=== PATIENT | female | born 1970 | race Hispanic/Latino ===

== ENCOUNTER 2016-09-17 09:21 | Emergency (ER) | payer BC ==
[2016-09-17] MEDS ORDERED: Sodium Chloride 0.9% 2.5 ML Syringe FLUSH PRN (09:33)
[2016-09-17] MEDS ORDERED: Sodium Chloride 0.9% 10 ML Syringe FLUSH PRN (09:33)
[2016-09-17] MEDS ORDERED: Aspirin 81 MG Tab.Chew PO ONE (09:33)
[2016-09-17] MEDS ORDERED: Aspirin 81 MG Tab.Chew ONE (09:34)
[2016-09-17] MEDS ORDERED: Nitroglycerin 0.4 MG Tab.SL ONE (09:34)
[2016-09-17] MEDS: Nitroglycerin 0.4 MG Tab.SL SL SCH ×3 (09:37→10:00)
--- NOTE | 2016-09-17 09:37 | EDM.PDOC ---
ED HISTORY OF PRESENT ILLNESS - General Chief Complaint: Cardiovascular Problem Stated Complaint: CHEST PAINS Time Seen by Provider: 09/17/16 09:21 - History of Present Illness INITIAL COMMENTS - FREE TEXT/NARRATIVE: HISTORY AND PHYSICAL: History of present illness: The patient is a 46-year-old female with a history of high cholesterol hypertension and nse-nadaice-cepxuanal diabetes who follows in our clinic presents with complaints of midsternal chest pressure that started approximately 7 AM, 2-1/2 hours ago. The patient states that she has had on and off left upper extremity discomfort and neck stiffness for one week but she was working through that and she thought it was more muscular. Patient had a normal day yesterday and slept fine and woke up at her usual time and as the morning went on she started feeling the discomfort ; she was not nauseated she was not diaphoretic. She has no leg pain or swelling and no recent long trips. She says she feels a little short of breath due to the pressure but does not feel that the pain worsens with deep breath. She's had no recent trauma to her chest and has no history of any cardiac testing. She is a smoker of tobacco but denies drug use and has no family cardiac history that she admits to. Patient denies any abdominal pain Review of systems: As per history of present illness and below otherwise all systems reviewed and negative. Past medical history: As per history of present illness and as reviewed below otherwise noncontributory. Surgical history: As per history of present illness and as reviewed below otherwise noncontributory. Social history: No reported history of drug or alcohol abuse. Family history: As per history of present illness and as reviewed below otherwise noncontributory. Physical exam: General: Well-developed well-nourished female who is overweight and nontoxic appearing speaking in full sentences. Her vital signs have been noted by me and her blood pressure is notably elevated. She seems somewhat overwhelmed by the process here in the ED with chest pain patient's. HEENT: Atraumatic, normocephalic, negative for conjunctival pallor or scleral icterus, mucous membranes moist, throat clear, neck supple, nontender, trachea midline. Lungs: Clear to auscultation, breath sounds equal bilaterally, chest nontender. Heart: S1S2, regular, negative for clicks, rubs, or JVD. Abdomen: Soft, nondistended, nontender. Negative for masses or hepatosplenomegaly. NABS Pelvis: Stable nontender. Genitourinary: Deferred. Rectal: Deferred. Extremities: Atraumatic, negative for cords or calf pain. Neurovascular unremarkable. No pedal edema or leg asymmetry Neuro: Awake, alert, oriented. Cranial nerves II through XII unremarkable. Cerebellum unremarkable. Motor and sensory unremarkable throughout. Exam nonfocal. Diagnostics: EKG chest x-ray CBC CMP INR and d-dimer troponin Therapeutics: IV O2 monitor aspirin nitroglycerin sublingual nitro paste After 2 sublingual nitros the patient's chest pain/pressure is now 0/10. We'll apply nitro paste and continue to monitor her testing results. We'll plan for observation admission 1030: I. discussed all testing results with the patient and told her that the treatment of choice would be observation admission and she adamantly is declining admission. I've explained to her the risks of her decision and my concerns and she states understanding and accepts them. She states she will followup with her primary in the clinic and return here for any issues. Impression: Chest pain rule out ACS refusing admission, hypertension poorly controlled Definitive disposition and diagnosis as appropriate pending reevaluation and review of above. - Related Data Allergies/ADRs: Allergies Allergy/AdvReac Type Severity Reaction Status Date / Time No Known Allergies Allergy Verified 09/17/16 10:07 Home Meds: Home Meds Lisinopril/Hydrochlorothiazide [Lisinopril-Hctz 20-12.5 mg Tab] 09/17/16 [ History] atorvaSTATin [Lipitor] 10 mg PO ONETIME 09/17/16 [History] metFORMIN [Glucophage XR] 09/17/16 [History] ED ROS GENERAL - Review of Systems Review Of Systems: ROS reveals no pertinent complaints other than HPI. ED EXAM, GENERAL - Physical Exam Exam: See Below (See dictation) Course - Vital Signs Last Recorded V/S: Last Vital Signs Temp 36.3 C 09/17/16 09:26 Pulse 87 09/17/16 09:55 Resp 18 09/17/16 09:55 BP 156/94 H 09/17/16 10:00 Pulse Ox 100 09/17/16 10:01 - Orders/Labs/Meds Orders: Active Orders 24 hr Category Date Time Status Cardiac Monitoring [RC] . DIRECTED Care 09/17/16 09:31 Active EKG 12 Lead [EKG Documentation Completion] [] STAT Care 09/17/16 10:06 Active EKG Documentation Completion [RC] STAT Care 09/17/16 09:31 Active Oxygen Therapy, ED [RC] ASDIRECTED Care 09/17/16 09:31 Active Pulse Oximetry [RC] ASDIRECTED Care 09/17/16 09:31 Active Nitroglycerin [Nitrostat] Med 09/17/16 09:45 Active 0.4 mg SL Q5M Sodium Chloride 0.9% [Saline Flush] Med 09/17/16 09:33 Active 10 ml FLUSH ASDIRECTED PRN Sodium Chloride 0.9% [Saline Flush] Med 09/17/16 09:33 Active 2.5 ml FLUSH ASDIRECTED PRN Saline Lock Insert [OM.PC] Stat Oth 09/17/16 09:31 Ordered Medication Orders Nitroglycerin (Nitrostat) 0.4 mg SL Q5M [facility] Last Admin: 09/17/16 10:00 Dose: Not Given Admin: 09/17/16 09:48 Dose: 0.4 mg Admin: 09/17/16 09:37 Dose: 0.4 mg Sodium Chloride (Saline Flush) 10 ml FLUSH ASDIRECTED PRN PRN Reason: Keep Vein Open Last Admin: 09/17/16 09:38 Dose: 10 ml Sodium Chloride (Saline Flush) 2.5 ml FLUSH ASDIRECTED PRN PRN Reason: Keep Vein Open Last Admin: 09/17/16 09:38 Dose: 2.5 ml Labs: Laboratory Tests 09/17/16 09/17/16 09/17/16 Range/Units 09:32 09:32 09:32 WBC 8.50 (4.0-11.0) K/uL RBC 4.37 (4.30-5.90) M/uL Hgb 13.4 (12.0-16.0) g/dL Hct 40.3 (36.0-46.0) % MCV 92.2 (80.0-98.0) fL MCH 30.7 (27.0-32.0) pg MCHC 33.3 (31.0-37.0) g/dL RDW Std Deviation 42.5 (28.0-62.0) fl RDW Coeff of Kristy 13 (11.0-15.0) % Plt Count 291 (150-400) K/uL MPV 9.90 (7.40-12.00) fL Neut % (Auto) 49.3 (48.0-80.0) % Lymph % (Auto) 44.2 H (16.0-40.0) % [place] % (Auto) 4.7 (0.0-15.0) % Eos % (Auto) 1.3 (0.0-7.0) % Baso % (Auto) 0.5 (0.0-1.5) % Neut # (Auto) 4.2 (1.4-5.7) K/uL Lymph # (Auto) 3.8 H (0.6-2.4) K/uL [place] # (Auto) 0.4 (0.0-0.8) K/uL Eos # (Auto) 0.1 (0.0-0.7) K/uL Baso # (Auto) 0.0 (0.0-0.1) K/uL Nucleated RBC % 0.0 /100WBC Nucleated RBCs # 0 K/uL INR (0.86-1.11) D-Dimer, Quantitative (0.0-0.52) mg/LFEU Sodium 138 (136-146) mmol/L Potassium 4.1 (3.5-5.1) mmol/L Chloride 103 (98-110) mmol/L Carbon Dioxide 25 (21-31) mmol/L BUN 17 (6.0-23.0) mg/dL Creatinine 0.8 (0.6-1.5) mg/dL Est Cr Clr Drug Dosing 65.60 mL/min Estimated GFR (MDRD) > 60.0 ml/min Glucose 120 H (60-110) mg/dL Calcium 9.6 (8.8-10.8) mg/dL Total Bilirubin 0.5 (0.1-1.5) mg/dL AST 24 (5-40) IU/L ALT 25 (8-54) IU/L Alkaline Phosphatase 68 (40-150) Troponin I < 0.10 (0.0-0.29) NG/ML Total Protein 7.7 (6.0-8.0) g/dL Albumin 4.2 (3.5-5.0) g/dL Globulin 3.5 (2.0-3.5) g/dL Albumin/Globulin Ratio 1.2 L (1.3-2.8) 09/17/16 Range/Units 09:52 WBC (4.0-11.0) K/uL RBC (4.30-5.90) M/uL Hgb (12.0-16.0) g/dL Hct (36.0-46.0) % MCV (80.0-98.0) fL MCH (27.0-32.0) pg MCHC (31.0-37.0) g/dL RDW Std Deviation (28.0-62.0) fl RDW Coeff of Kristy (11.0-15.0) % Plt Count (150-400) K/uL MPV (7.40-12.00) fL Neut % (Auto) (48.0-80.0) % Lymph % (Auto) (16.0-40.0) % [place] % (Auto) (0.0-15.0) % Eos % (Auto) (0.0-7.0) % Baso % (Auto) (0.0-1.5) % Neut # (Auto) (1.4-5.7) K/uL Lymph # (Auto) (0.6-2.4) K/uL [place] # (Auto) (0.0-0.8) K/uL Eos # (Auto) (0.0-0.7) K/uL Baso # (Auto) (0.0-0.1) K/uL Nucleated RBC % /100WBC Nucleated RBCs # K/uL INR 0.88 (0.86-1.11) D-Dimer, Quantitative 0.44 (0.0-0.52) mg/LFEU Sodium (136-146) mmol/L Potassium (3.5-5.1) mmol/L Chloride (98-110) mmol/L Carbon Dioxide (21-31) mmol/L BUN (6.0-23.0) mg/dL Creatinine (0.6-1.5) mg/dL Est Cr Clr Drug Dosing mL/min Estimated GFR (MDRD) ml/min Glucose (60-110) mg/dL Calcium (8.8-10.8) mg/dL Total Bilirubin (0.1-1.5) mg/dL AST (5-40) IU/L ALT (8-54) IU/L Alkaline Phosphatase (40-150) Troponin I (0.0-0.29) NG/ML Total Protein (6.0-8.0) g/dL Albumin (3.5-5.0) g/dL Globulin (2.0-3.5) g/dL Albumin/Globulin Ratio (1.3-2.8) Meds: Medications Generic Name Dose Route Start Last Admin Trade Name Freq PRN Reason Stop Dose Admin Nitroglycerin 0.4 mg 09/17/16 09:45 09/17/16 10:00 Nitrostat SL Not Given Q5M FARAZ Sodium Chloride 10 ml 09/17/16 09:33 09/17/16 09:38 Saline Flush FLUSH 10 ml ASDIRECTED PRN Administration Keep Vein Open Sodium Chloride 2.5 ml 09/17/16 09:33 09/17/16 09:38 Saline Flush FLUSH 2.5 ml ASDIRECTED PRN Administration Keep Vein Open Discontinued Medications Generic Name Dose Route Start Last Admin Trade Name Freq PRN Reason Stop Dose Admin Aspirin 324 mg 09/17/16 09:33 09/17/16 09:37 Aspirin PO 09/17/16 09:34 324 mg ONETIME ONE Administration Aspirin Confirm 09/17/16 09:34 09/17/16 09:57 Aspirin Administered 09/17/16 09:35 Not Given Dose 324 mg .ROUTE .STK-MED ONE Nitroglycerin Confirm 09/17/16 09:34 09/17/16 09:57 Nitrostat Administered 09/17/16 09:35 Not Given Dose 0.4 mg .ROUTE .STK-MED ONE Nitroglycerin 0.5 gm 09/17/16 10:15 09/17/16 10:20 Nitro-Bid 2% TOP 09/17/16 10:16 0.5 gm ONETIME ONE Administration Departure - Departure Time of Disposition: 10:32 Disposition: Home, Self-Care 01 Condition: good Clinical Impression: Poorly-controlled hypertension, Refusal of treatment Chest pain Qualifiers: Chest pain type: unspecified Qualified Code(s): R07.9 - Chest pain, unspecified Forms: ED Department Discharge Additional Instructions: The following information is given to patients seen in the emergency department who are being discharged to home. This information is to outline your options for follow-up care. We provide all patients seen in our emergency department with a follow-up referral. The need for follow-up, as well as the timing and circumstances, are variable depending upon the specifics of your emergency department visit. If you don't have a primary care physician on staff, we will provide you with a referral. We always advise you to contact your personal physician following an emergency department visit to inform them of the circumstance of the visit and for follow-up with them and/or the need for any referrals to a consulting specialist. The emergency department will also refer you to a specialist when appropriate. This referral assures that you have the opportunity for followup care with a specialist. All of these measure are taken in an effort to provide you with optimal care, which includes your followup. Under all circumstances we always encourage you to contact your private physician who remains a resource for coordinating your care. When calling for followup care, please make the office aware that this follow-up is from your recent emergency room visit. If for any reason you are refused follow-up, please contact the [facility] emergency department at and ask to speak to the emergency department charge nurse. [facility] Primary care- Internal Medicine and Family [address] [address] Please call and followup with your primary care physician as we discussed in the next one to 2 days and return to ER as needed and as discussed. Please continue all your home medications and take one 325 mg Ecotrin aspirin every day until you're seen by your doctor. - My Orders Last 24 Hours: My Active Orders 09/17/16 09:31 Cardiac Monitoring [RC] . DIRECTED EKG Documentation Completion [RC] STAT Oxygen Therapy, ED [RC] ASDIRECTED Pulse Oximetry [RC] ASDIRECTED Saline Lock Insert [OM.PC] Stat 09/17/16 09:33 Sodium Chloride 0.9% [Saline Flush] 10 ml FLUSH ASDIRECTED PRN Sodium Chloride 0.9% [Saline Flush] 2.5 ml FLUSH ASDIRECTED PRN 09/17/16 09:45 Nitroglycerin [Nitrostat] 0.4 mg SL Q5M 09/17/16 10:06 EKG 12 Lead [EKG Documentation Completion] [RC] STAT - Assessment/Plan Last 24 Hours: My Active Orders 09/17/16 09:31 Cardiac Monitoring [RC] . DIRECTED EKG Documentation Completion [RC] STAT Oxygen Therapy, ED [RC] ASDIRECTED Pulse Oximetry [RC] ASDIRECTED Saline Lock Insert [OM.PC] Stat 09/17/16 09:33 Sodium Chloride 0.9% [Saline Flush] 10 ml FLUSH ASDIRECTED PRN Sodium Chloride 0.9% [Saline Flush] 2.5 ml FLUSH ASDIRECTED PRN 09/17/16 09:45 Nitroglycerin [Nitrostat] 0.4 mg SL Q5M 09/17/16 10:06 EKG 12 Lead [EKG Documentation Completion] [RC] STAT
--- NOTE | 2016-09-17 10:12 | CR ---
EXAMINATION: Portable chest radiograph. HISTORY: Shortness of breath. FINDINGS: The trachea is midline. The cardiomediastinal silhouette is within normal limits. No pulmonary infil trates, effusions or pneumothorax. Osseous structures appear unremarkable. IMPRESSION: No acute cardiopulmonary process.
[2016-09-17] MEDS ORDERED: Nitroglycerin 2% Oint 1 GM UD Packet TOP ONE (10:15)
[2016-09-17 10:23] LABS: CHLORIDE,CL 103 mmol/L (98-110); SODIUM,NA 138 mmol/L (136-146)
[2016-09-17 11:20] VITALS: BP 162/92
== END 2016-09-17 10:50 | disposition home or self-care (01) ==
LOC: MW.ED 09:21
DX: R07.89 Other chest pain (principal); I10 Essential (primary) hypertension; E78.00 Pure hypercholesterolemia, unspecified; E11.9 Type 2 diabetes mellitus without complications; Z79.84 Long term (current) use of oral hypoglycemic drugs
CPT/HCPCS: 71010; 80053; 84484; 85025; 85379; 85610; 93005; 99285; A9270; 99284

== ENCOUNTER 2020-01-05 06:43 | Day surgery (SDC) | payer OTHER ==
[~2020-01-05 06:43] MED LIST: Lactated Ringers 1,000 ML IV SCH; Sodium Chloride 0.9% 10 ML SDV IV PRN; Sodium Chloride 0.9% 10 ML Syringe FLUSH PRN; Sodium Chloride 0.9% 2.5 ML Syringe FLUSH PRN; ceFAZolin 2 GM in Premix Bag 1 BAG IV ONE
[2020-01-05] MEDS ORDERED: Propofol 200 MG/20 ML SDV ONE ×4 (06:59→08:32)
[2020-01-05] MEDS ORDERED: Lidocaine 2% 5 ML SDV ONE (06:59)
[2020-01-05] MEDS ORDERED: Midazolam 1 MG/ML 2 ML SDV ONE (06:59)
[2020-01-05] MEDS ORDERED: Ondansetron 4 MG/2 ML SDV ONE (06:59)
[2020-01-05] MEDS ORDERED: fentaNYL 250 MCG/5 ML SDV ONE (07:00)
[2020-01-05] MEDS ORDERED: Midazolam 1 MG/ML 2 ML SDV IVPUSH ONE (07:16)
--- NOTE | 2020-01-05 07:16 | PCM.PREANE ---
Preanesthetic Assessment - Anesthesia/Transfusion/Family Hx Anesthesia History: Prior Anesthesia Reaction (slow waking) Family History of Anesthesia Reaction: No Transfusion History: No Prior Transfusion(s) - Review of Systems General: No Symptoms Pulmonary: No Symptoms Cardiovascular: No Symptoms Gastrointestinal: No Symptoms Neurological: No Symptoms Other: Reports: Anxiety - Physical Assessment NPO Status Date: 01/04/20 Vital Signs: Last Vital Signs Temp 98.2 F 01/05/20 07:04 Pulse 98 01/05/20 07:04 Resp 14 01/05/20 07:04 BP 131/87 01/05/20 07:04 Pulse Ox 99 01/05/20 07:04 Height: 5 ft Weight: 84.822 kg ASA Class: 2 Mental Status: Alert & Oriented x3 Airway Class: Mallampati = 2 Dentition: Reports: Normal Dentition ROM/Head Extension: Full Lungs: Clear to Auscultation, Normal Respiratory Effort Cardiovascular: Regular Rate, Regular Rhythm - Allergies Allergies/Adverse Reactions: Allergies Allergy/AdvReac Type Severity Reaction Status Date / Time No Known Allergies Allergy Verified 01/05/20 07:09 - Blood Blood Available: No - Anesthesia Plan Pre-Op Medication Ordered: Anxiolytic - Acknowledgements Anesthesia Type Planned: MAC Pt an Appropriate Candidate for the Planned Anesthesia: Yes Alternatives and Risks of Anesthesia Discussed w Pt/Guardian: Yes Pt/Guardian Understands and Agrees with Anesthesia Plan: Yes Additional Comments: PMH: anxiety disorder, DM2, smoker, periph neuropathy PLAN: MAC PreAnesthesia Questionnaire HEENT History: Reports: Other (See Below) Other HEENT History: wears glasses Cardiovascular History: Reports: High Cholesterol, Hypertension Respiratory History: Reports: None Gastrointestinal History: Reports: Other (See Below) Other Gastrointestinal History: some heartburn Genitourinary History: Reports: None NEURO OPHTHALMOLOGIST History: Reports: None Musculoskeletal History: Reports: None Neurological History: Reports: Other (See Below) Other Neuro History: hx of motion sickness Psychiatric History: Reports: Anxiety Endocrine/Metabolic History: Reports: Diabetes, Type II, Obesity/BMI 30+ Hematologic History: Reports: None Immunologic History: Reports: None Oncologic (Cancer) History: Reports: None Dermatologic History: Reports: None - Infectious Disease History Infectious Disease History: Reports: Chicken Pox - Past Surgical History Head Surgeries/Procedures: Reports: None HEENT Surgical History: Reports: None Cardiovascular Surgical History: Reports: None GI Surgical History: Reports: None Female Surgical History: Reports: Tubal Ligation Endocrine Surgical History: Reports: None Neurological Surgical History: Reports: None Musculoskeletal Surgical History: Reports: Other (See Below) Other Musculoskeletal Surgeries/Procedures:: wound closure on leg Dermatological Surgical History: Reports: None - SUBSTANCE USE Smoking Status *Q: Current Every Day Smoker Tobacco Use Within Last Twelve Months: Cigarettes Recreational Drug Use History: No - HOME MEDS Home Medications: Home Meds atorvaSTATin [Lipitor] 20 mg PO BEDTIME 09/17/16 [History] Dapagliflozin Propanediol [Farxiga] 10 mg PO DAILY 12/30/19 [History] Escitalopram Oxalate 10 mg PO DAILY 12/30/19 [History] Lisinopril/Hydrochlorothiazide [Lisinopril-Hctz 20-25 mg Tab] 1 tab PO DAILY 12/30/19 [History] - CURRENT (IN HOUSE) MEDS Current Meds: Current Medications Lactated Ringer's (Ringers, Lactated) 1,000 mls @ 125 mls/hr IV ASDIRECTED FARAZ Sodium Chloride (Saline Flush) 2.5 ml FLUSH ASDIRECTED PRN PRN Reason: Keep Vein Open Sodium Chloride (Normal Saline) 10 ml IV ASDIRECTED PRN PRN Reason: IV Use Sodium Chloride (Saline Flush) 10 ml FLUSH ASDIRECTED PRN PRN Reason: Keep Vein Open Discontinued Medications Fentanyl (Sublimaze) Confirm Administered Dose 250 mcg .ROUTE .STK-MED ONE Stop: 01/05/20 07:01 Cefazolin Sodium/Dextrose 2 gm (/ Premix) 50 mls @ 100 mls/hr IV ONETIME ONE Stop: 01/02/20 11:42 Lidocaine (Xylocaine-Mpf 2%) Confirm Administered Dose 5 ml .ROUTE .STK-MED ONE Stop: 01/05/20 07:00 Midazolam HCl (Versed 1 Mg/Ml) Confirm Administered Dose 2 mg .ROUTE .STK-MED ONE Stop: 01/05/20 07:00 Ondansetron HCl (Zofran) Confirm Administered Dose 4 mg .ROUTE .STK-MED ONE Stop: 01/05/20 07:00 Propofol (Diprivan 20 Ml) Confirm Administered Dose 200 mg .ROUTE .STK-MED ONE Stop: 01/05/20 07:00
[2020-01-05] MEDS ORDERED: Lidocaine 1% 20 ML MDV ONE (07:17)
[2020-01-05] MEDS ORDERED: Bupivacaine 0.5% 10 ML SDV ONE (07:17)
[2020-01-05] MEDS ORDERED: Octyl 2-Cyanoacrylate 1 Tube ONE ×2 (07:17→08:47)
[2020-01-05] MEDS ORDERED: ePHEDrine 50 MG/ML SDV ONE (08:06)
[2020-01-05] MEDS ORDERED: Albuterol 0.083% 2.5 MG/3 ML Neb Soln NEB PRN (08:15)
[2020-01-05] MEDS ORDERED: Atropine 0.1 MG/ML 10 ML Syringe IVPUSH PRN ×2 (08:15)
[2020-01-05] MEDS ORDERED: Naloxone 0.4 MG/ML Syringe IVPUSH PRN (08:15)
[2020-01-05] MEDS ORDERED: 50% Dextrose in Water 50 ML Syringe IVPUSH PRN (08:15)
[2020-01-05] MEDS ORDERED: fentaNYL 100 MCG/2 ML SDV IVPUSH PRN (08:15)
[2020-01-05] MEDS ORDERED: EPINEPHrine 1:10,000 1 MG/10 ML Syringe IVPUSH PRN (08:15)
--- NOTE | 2020-01-05 09:14 | PCM.OPNOTE ---
- General Post-Op/Procedure Note Date of Surgery/Procedure: 01/05/20 Operative Procedure(s): Excision right abdominal, right hip, and left lower leg skin lesion Findings: right abdominal skin lesion: 0.5 x 0.9 cm on skin, 2 x 1.5 x 0.4 skin excised, 2 cm cyst right hip:5mm on skin, 1 x 0.5 x 0.8 cm excised left lower leg skin lesion: 1 cm on skin, 1.2 x 1 x 1 cm excised Ruptured sebaceous cyst on mid abdomen skin Pre Op Diagnosis: Sebaceous cysts Post-Op Diagnosis: same Anesthesia Technique: MAC Primary Surgeon: Suri Grant Fluid Replacement, Intraop: 1,400 EBL in mLs: 3 Condition: Good
--- NOTE | 2020-01-05 10:22 | PCM.POSTAN ---
POST ANESTHESIA ASSESSMENT - MENTAL STATUS Mental Status: Alert, Oriented - VITAL SIGNS Vital Signs: Last Vital Signs Temp 97.2 F 01/05/20 09:40 Pulse 89 01/05/20 09:40 Resp 16 01/05/20 09:40 BP 141/77 H 01/05/20 09:40 Pulse Ox 100 01/05/20 09:40 - RESPIRATORY Respiratory Status: Respiratory Rate WNL, Airway Patent, O2 Saturation Stable - CARDIOVASCULAR CV Status: Pulse Rate WNL, Blood Pressure Stable - GASTROINTESTINAL GI Status: No Symptoms - POST OP HYDRATION Hydration Status: Adequate & Stable
[2020-01-05] MEDS ORDERED: Sodium Chloride 0.9% 500 ML IV SCH (10:30)
[2020-01-05 10:45] LABS: CARBON DIOXIDE,CO2 24.4 mmol/L (21.0-32.0); POTASSIUM,K 4.1 mmol/L (3.5-5.1)
[2020-01-05 11:26] LABS: HEMOGLOBIN A1C 10.3 % (4.5-6.2)
[2020-01-05 12:08] VITALS: BP 126/78; PULSE 88
--- NOTE | 2020-01-05 12:32 | PCM48HPAN ---
Post Anesthesia Note - EVALUATION WITHIN 48HRS OF ANESTHETIC Vital Signs in Normal Range: Yes Patient Participated in Evaluation: Yes Respiratory Function Stable: Yes Airway Patent: Yes Cardiovascular Function Stable: Yes Hydration Status Stable: Yes Pain Control Satisfactory: Yes Nausea and Vomiting Control Satisfactory: Yes Mental Status Recovered: Yes Vital Signs: Last Vital Signs Temp 97.2 F 01/05/20 09:40 Pulse 88 01/05/20 11:35 Resp 14 01/05/20 11:35 BP 126/78 01/05/20 11:35 Pulse Ox 100 01/05/20 11:35
--- NOTE | 2020-01-06 17:35 | OR ---
SURGEON: SURI GRANT MD DATE OF PROCEDURE: 01/05/2020 PREOPERATIVE DIAGNOSES: 1. Left lower skin lesion. 2. Right hip skin lesion. 3. Abdominal skin lesion. POSTOPERATIVE DIAGNOSES: 1. Left lower skin lesion. 2. Right hip skin lesion. 3. Abdominal skin lesion. PROCEDURE PERFORMED: Excision of left lower leg, right hip, and abdominal skin lesions. PRIMARY SURGEON: Suri Grant MD ANESTHESIA: MAC, local. FLUIDS: 1400 mL of crystalloid. ESTIMATED BLOOD LOSS: 3 mL. FINDINGS: Left lower leg skin lesion 0.5 x 0.5 cm on the skin, underlying cyst 2 cm, ellipse of skin removed 2 x 1.5 x 0.4 cm. No margins involved with case. Right hip skin lesion 5 mm on the skin, excision 1 x 0.5 x 0.8 cm. No margins associated with case. Abdominal skin lesion 1 cm, excision 1.2 x 1 x 1 cm in size. No margins associated with case. COMPLICATIONS: None. INDICATIONS: The patient is a 49-year-old female with poorly-controlled type 2 diabetes who has multiple skin lesions on her body. She has three skin lesions that appear to be sebaceous cysts. The patient has had issues with chronic infections. A decision was made to excise these while they are not infected. I explained the procedure; expected perioperative course; and the risks including bleeding, infection, or wound dehiscence. She verbalized understanding and wishes to proceed. PROCEDURE IN DETAIL: The patient was brought into the OR and placed on the OR table in supine position. A time-out was completed verifying the patient's name, age, date of , allergies, and procedure to be performed. Monitored anesthesia care was induced. The patient was then placed in a right lateral decubitus position. The left lower leg was prepped and draped in usual standard fashion. I measured the lesion on her left lower leg. It measured 0.5 cm in diameter. An elliptical skin incision was made using a 15 blade after anesthetizing the area with 1% lidocaine plain. Cautery was then used to dissect down to level of subcutaneous fat. At the subcutaneous fat layer, the patient was noted to have what appeared to be a large cyst associated with the skin lesion. This appeared to be a sebaceous cyst. I used cautery to excise the overlying skin lesion and the underlying skin cyst. It was placed on the back table. The overlying skin measured 2 cm x 1.5 cm x 0.4 cm. The underlying skin cyst was 2 cm in size. It was sent to pathology, labeled as left lower skin lesion. The wound was then inspected for hemostasis. Hemostasis was achieved with electrocautery. Given that the wound was in a high motion area, the decision was made to close it with interrupted 3-0 Ethilon sutures. I closed the wound in a horizontal mattress technique. The wound was then covered with a sterile dressing. We then placed the patient into a semi-left lateral position. The right hip was prepped and draped in usual standard fashion. I anesthetized the area with 1% lidocaine plain. I measured the skin lesion, which appeared to measure approximately 5 mm in diameter. An elliptical skin incision was made. Electrocautery was used to dissect down to level of subcutaneous fat. I then undermined the lesion. It was placed on the back table. The ellipse of tissue measured 1 cm x 0.5 cm x 0.8 cm in size. It was sent to pathology, labeled as right hip skin lesion. Hemostasis was achieved with electrocautery. The wound was then closed with interrupted 3-0 Vicryl sutures in the subcutaneous fat layer and interrupted 4-0 Monocryl sutures in the skin. Dermabond and a sterile dressing were applied. We then prepped and draped the right lower quadrant in sterile standard fashion. Again, I anesthetized this area with 1% lidocaine plain and 0.5% Marcaine plain. The skin lesion measured 1 cm in size. I made an elliptical skin incision using a 15 blade. Cautery was used to dissect down to level of subcutaneous fat. I undermined the lesion and placed it on the back table. The skin lesion and ellipse of skin around it that was removed measured 1.2 x 1 x 1 cm in size. It was sent to pathology, labeled as abdominal skin lesion. Hemostasis was achieved with electrocautery. I then closed the wound with interrupted 3-0 Vicryl sutures in the subcutaneous fat layer. The skin was closed with a running 4-0 Monocryl stitch. Dermabond and sterile dressings were applied. The patient was noted along the mid abdomen to have an inflamed previously ruptured cyst. The area was covered in bacitracin and a clean dressing applied. The patient was taken to PACU in stable condition. Throughout the case, the patient was tachypneic. Labs were checked. The patient had an elevated lactate of 2.8 cm. The patient was given a 500 mL bolus of normal saline. She was kept on IV fluids and allowed to eat. Two hours later, her lactate had come down. The remainder of her labs were normal. The patient was placed on Keflex outpatient given the inflamed appearing and previously ruptured cyst. The patient otherwise tolerated the procedure well with no immediate complications. REN BACA /[id number]
== END 2020-01-05 13:38 | disposition home or self-care (01) ==
LOC: MW.SDS 06:43
PROVIDERS: ATTEND Surgery
DX: L72.0 Epidermal cyst (principal); F41.9 Anxiety disorder, unspecified; E78.00 Pure hypercholesterolemia, unspecified; I10 Essential (primary) hypertension; E66.3 Overweight; E11.42 Type 2 diabetes mellitus with diabetic polyneuropathy; F17.210 Nicotine dependence, cigarettes, uncomplicated; Z68.36 Body mass index [BMI] 36.0-36.9, adult; Z79.899 Other long term (current) drug therapy; Z79.84 Long term (current) use of oral hypoglycemic drugs
CPT/HCPCS: 11401; 11402; 12031; 36415; 80053; 82962; 83036; 83605; 85025; A9270; J2001; J2250; J2704; J3010; J3490; J7050; J7120; 00400; 88304; J2405

== ENCOUNTER 2023-04-24 10:13 | Emergency (ER) | payer OTHER ==
[2023-04-24 10:29] LABS: BASOPHILS ABSOLUTE AUTO 0.04 K/uL (0.00-0.20); BASOPHILS PERCENT AUTO 0.6 % (0.0-1.0); EOSINOPHILS ABSOLUTE AUTO 0.14 K/uL (0.00-0.45); EOSINOPHILS PERCENT AUTO 1.9 % (0.0-6.0); HEMATOCRIT 46.9 % (37.0-47.0); HEMOGLOBIN 16.8 g/dL (12.0-16.0); IMMATURE GRAN ABSOLUTE AUTO 0.02 K/uL (0.00-0.05); IMMATURE GRAN PERCENT AUTO 0.3 % (0.0-0.4); LYMPHOCYTES ABSOLUTE AUTO 2.79 K/uL (1.00-4.80); LYMPHOCYTES PERCENT AUTO 38.5 % (24.0-44.0); MEAN CORPUSCULAR HEMOGLOBIN 31.6 pg (28.0-32.0); MEAN CORPUSCULAR HGB CONC 35.8 g/dL (32.0-36.0); MEAN CORPUSCULAR VOLUME 88.3 fL (83.0-99.0); MEAN PLATELET VOLUME 9.7 fL (9.4-12.3); MONOCYTES ABSOLUTE AUTO 0.48 K/uL (0.00-0.80); MONOCYTES PERCENT AUTO 6.6 % (0.0-8.0); NEUTROPHILS ABSOLUTE AUTO 3.78 K/uL (1.80-7.70); NEUTROPHILS PERCENT AUTO 52.1 % (41.0-71.0); PLATELET COUNT,PLT 256 K/uL (150-400); RED BLOOD CELL COUNT 5.31 M/uL (4.10-5.30); WHITE BLOOD CELL COUNT,WBC 7.25 K/uL (3.9-11.3)
[2023-04-24] MEDS ORDERED: Lidocaine 4% 1 each Patch TOP STA (10:43)
[2023-04-24] MEDS ORDERED: Acetaminophen 500 MG Tab PO ONE (10:43)
[2023-04-24] MEDS ORDERED: cloNIDine 0.1 MG Tab PO ONE (10:43)
[2023-04-24 11:05] LABS: A/G RATIO 0.9 (0.9-1.6); BILIRUBIN TOTAL 0.5 mg/dL (0.2-1.0); CALCIUM 9.4 mg/dL (8.5-10.1); CARBON DIOXIDE,CO2 33.4 mmol/L (21.0-32.0); CREATININE 1.1 mg/dL (0.6-1.0); EST CRCL DRUG DOSING (CG) 42.48 mL/min; POTASSIUM,K 2.9 mmol/L (3.5-5.1); PROTEIN TOTAL,TP 8.3 g/dL (6.4-8.2)
[2023-04-24 11:52] LABS: CORONAVIRUS COVID-19 NAA NEGATIVE (NEGATIVE); INFLUENZA A NAA NEGATIVE (NEGATIVE); INFLUENZA B NAA NEGATIVE (NEGATIVE)
[2023-04-24] MEDS ORDERED: Magnesium Oxide 400 MG Tab PO ONE (12:17)
[2023-04-24] MEDS ORDERED: Potassium Chloride 20 MEQ Tab.ER PO ONE (12:17)
[2023-04-24 12:41] VITALS: BP 140/86; PULSE 79
== END 2023-04-24 12:41 | disposition home or self-care (01) ==
LOC: MW.ED 10:13
DX: R07.81 Pleurodynia (principal); I10 Essential (primary) hypertension; Z20.822 Contact with and (suspected) exposure to COVID-19; E11.9 Type 2 diabetes mellitus without complications; E66.9 Obesity, unspecified; Z68.31 Body mass index [BMI] 31.0-31.9, adult
CPT/HCPCS: 0240U; 36415; 71101; 80053; 83735; 84484; 85025; 93005; 99284; A9270

== ENCOUNTER 2024-05-02 07:55 | Day surgery (SDC) | payer BC ==
[2024-05-02] MEDS ORDERED: Propofol 200 MG/20 ML SDV ONE (08:09)
[2024-05-02] MEDS: Lactated Ringers 1,000 ML IV SCH (08:39)
[2024-05-02] MEDS ORDERED: Lidocaine 2% 5 ML SDV ONE (09:08)
[2024-05-02] MEDS ORDERED: Lactated Ringers 1,000 ML IV SCH (09:45)
[2024-05-02 09:55] VITALS: PULSE 67
[2024-05-02 11:28] VITALS: BP 174/94
== END 2024-05-02 10:20 | disposition home or self-care (01) ==
LOC: MW.SDS 07:55
PROVIDERS: ATTEND Surgery
DX: Z12.11 Encounter for screening for malignant neoplasm of colon (principal); C19 Malignant neoplasm of rectosigmoid junction; E11.9 Type 2 diabetes mellitus without complications; I10 Essential (primary) hypertension; E78.5 Hyperlipidemia, unspecified; E66.3 Overweight; F17.210 Nicotine dependence, cigarettes, uncomplicated; Z79.82 Long term (current) use of aspirin; Z79.899 Other long term (current) drug therapy; Z68.35 Body mass index [BMI] 35.0-35.9, adult
CPT/HCPCS: 36415; 45331; 82378; J2704; J7120; J3490

== ENCOUNTER 2024-05-26 10:25 | Emergency (ER) | payer BC ==
[2024-05-26 11:00] LABS: BASOPHILS ABSOLUTE AUTO 0.03 K/uL (0.00-0.20); BASOPHILS PERCENT AUTO 0.3 % (0.0-1.0); EOSINOPHILS PERCENT AUTO 1.1 % (0.0-6.0); HEMATOCRIT 41.1 % (37.0-47.0); HEMOGLOBIN 13.9 g/dL (12.0-16.0); IMMATURE GRAN ABSOLUTE AUTO 0.02 K/uL (0.00-0.05); IMMATURE GRAN PERCENT AUTO 0.2 % (0.0-0.4); LYMPHOCYTES ABSOLUTE AUTO 2.25 K/uL (1.00-4.80); LYMPHOCYTES PERCENT AUTO 24.5 % (24.0-44.0); MEAN CORPUSCULAR HEMOGLOBIN 29.6 pg (28.0-32.0); MEAN CORPUSCULAR HGB CONC 33.8 g/dL (32.0-36.0); MEAN CORPUSCULAR VOLUME 87.6 fL (83.0-99.0); MEAN PLATELET VOLUME 9.3 fL (9.4-12.3); MONOCYTES ABSOLUTE AUTO 0.72 K/uL (0.00-0.80); MONOCYTES PERCENT AUTO 7.8 % (0.0-8.0); NEUTROPHILS ABSOLUTE AUTO 6.07 K/uL (1.80-7.70); NEUTROPHILS PERCENT AUTO 66.1 % (41.0-71.0); PLATELET COUNT,PLT 281 K/uL (150-400); RED BLOOD CELL COUNT 4.69 M/uL (4.10-5.30); WHITE BLOOD CELL COUNT,WBC 9.19 K/uL (3.9-11.3)
[2024-05-26] MEDS: Morphine 4 MG/ML Syringe IVPUSH ONE ×2 (11:17→13:28)
[2024-05-26] MEDS: Sodium Chloride 0.9% 10 ML Syringe FLUSH PRN (11:18)
[2024-05-26] MEDS: Sodium Chloride 0.9% 1,000 ML IV STA (11:18)
[2024-05-26] MEDS: Sodium Chloride 0.9% 2.5 ML Syringe FLUSH PRN (11:18)
[2024-05-26 11:30] LABS: A/G RATIO 0.8 (0.9-1.6); ALBUMIN 3.6 g/dL (3.4-5.0); BILIRUBIN TOTAL 0.5 mg/dL (0.2-1.0); CALCIUM 9.2 mg/dL (8.5-10.1); CARBON DIOXIDE,CO2 26.5 mmol/L (21.0-32.0); CREATININE 0.9 mg/dL (0.6-1.0); EST CRCL DRUG DOSING (CG) 50.73 mL/min; POTASSIUM,K 3.5 mmol/L (3.5-5.1); PROTEIN TOTAL,TP 8.2 g/dL (6.4-8.2)
[2024-05-26 11:33] LABS: LACTIC ACID 0.8 mmol/L (0.4-2.0)
[2024-05-26 11:59] LABS: APPEARANCE,URINE CLEAR; BILIRUBIN,URINE NEGATIVE (NEGATIVE); GLUCOSE,URINE >=1000 mg/dL (NEGATIVE); KETONES,URINE NEGATIVE (NEGATIVE); LEUKOCYTE ESTERASE,URINE NEGATIVE (NEGATIVE); NITRITE,URINE NEGATIVE (NEGATIVE); OCCULT BLOOD,URINE NEGATIVE (NEGATIVE); PROTEIN,URINE NEGATIVE (NEGATIVE); UROBILINOGEN,URINE 0.2 EU/dL (<2.0)
[2024-05-26 12:01] LABS: COLOR,URINE STRAW
[2024-05-26] MEDS: Iopamidol 755 Mg/ML 100 ML Bottle IVPUSH ONE (12:17)
[2024-05-26 14:08] VITALS: PULSE 91
[2024-05-26 14:16] VITALS: BP 148/91
== END 2024-05-26 14:16 | disposition home or self-care (01) ==
LOC: MW.ED 10:25
DX: R10.31 Right lower quadrant pain (principal); C18.9 Malignant neoplasm of colon, unspecified; I10 Essential (primary) hypertension; I25.10 Atherosclerotic heart disease of native coronary artery without angina pectoris; E78.00 Pure hypercholesterolemia, unspecified; E66.9 Obesity, unspecified; E11.9 Type 2 diabetes mellitus without complications; Z75.8 Other problems related to medical facilities and other health care; Z79.82 Long term (current) use of aspirin; Z79.899 Other long term (current) drug therapy; Z68.32 Body mass index [BMI] 32.0-32.9, adult
CPT/HCPCS: 36415; 74177; 80053; 81003; 83605; 83690; 85025; 86850; 86900; 86901; 96361; 96374; 96376; 99284; J2270; J7030; Q9967; J3490

== ENCOUNTER 2024-07-14 08:05 | Day surgery (SDC) | payer BC ==
[~2024-07-14 08:05] MED LIST changes: +Bupivacaine 0.5% 30 ML SDV ONE; -Lactated Ringers 1,000 ML IV SCH; +Lidocaine 1% 20 ML MDV ONE; -Sodium Chloride 0.9% 10 ML SDV IV PRN; +Sodium Chloride 0.9% 20 ML SDV IV PRN; -ceFAZolin 2 GM in Premix Bag 1 BAG IV ONE; +ceFAZolin 2 GM in Sodium Chloride 0.9% 50 ML IV ONE
[2024-07-14] MEDS: Lactated Ringers 1,000 ML IV SCH (08:25)
[2024-07-14] MEDS ORDERED: Propofol 200 MG/20 ML SDV ONE (08:45)
[2024-07-14] MEDS ORDERED: Ondansetron 4 MG/2 ML SDV ONE (08:46)
[2024-07-14] MEDS ORDERED: fentaNYL 100 MCG/2 ML SDV ONE (08:46)
[2024-07-14] MEDS ORDERED: Lidocaine 1% 5 ML VIAL ONE (08:46)
[2024-07-14] MEDS ORDERED: Dexamethasone 4 MG/ML 5 ML MDV ONE (08:46)
[2024-07-14] MEDS ORDERED: ceFAZolin 2 GM Vial ONE (10:04)
[2024-07-14] MEDS ORDERED: HYDROmorphone 1 MG/ML Syringe IVPUSH PRN (11:01)
[2024-07-14] MEDS ORDERED: Albuterol 0.083% 2.5 MG/3 ML Neb Soln NEB PRN (11:01)
[2024-07-14] MEDS ORDERED: Morphine 2 MG/ML SYRINGE IVPUSH PRN (11:01)
[2024-07-14] MEDS ORDERED: Ondansetron 4 MG/2 ML SDV IVPUSH PRN (11:01)
[2024-07-14] MEDS ORDERED: Metoclopramide 10 MG/2 ML SDV IVPUSH PRN (11:01)
[2024-07-14] MEDS ORDERED: Naloxone 0.4 MG/ML SDV IVPUSH PRN (11:01)
[2024-07-14] MEDS ORDERED: Phenylephrine HCl In 0.9% NaCl 1 MG/10 ML Syringe IVPUSH PRN (11:01)
[2024-07-14] MEDS: fentaNYL 50 MCG/ML SDV IVPUSH PRN (11:05)
[2024-07-14 12:43] VITALS: BP 176/92; PULSE 71
== END 2024-07-14 11:55 | disposition home or self-care (01) ==
LOC: MW.SDS 08:05
PROVIDERS: ATTEND Surgery
DX: C18.9 Malignant neoplasm of colon, unspecified (principal); I25.10 Atherosclerotic heart disease of native coronary artery without angina pectoris; E11.9 Type 2 diabetes mellitus without complications; I10 Essential (primary) hypertension; E78.00 Pure hypercholesterolemia, unspecified; F17.210 Nicotine dependence, cigarettes, uncomplicated; Z79.82 Long term (current) use of aspirin; Z79.899 Other long term (current) drug therapy
CPT/HCPCS: 71045; 71045-26; 76000; 76000-26; J0131; J0665; J0690; J1100; J1642; J2405; J2704; J3010; J3490; J7120

== ENCOUNTER 2024-09-04 19:49 | Emergency (ER) | payer BC ==
[2024-09-04] MEDS ORDERED: Sodium Chloride 0.9% 2.5 ML Syringe FLUSH PRN ×2 (20:21→20:40)
[2024-09-04] MEDS ORDERED: Sodium Chloride 0.9% 10 ML Syringe FLUSH PRN ×2 (20:21→20:40)
[2024-09-04] MEDS ORDERED: Sodium Chloride 0.9% 20 ML SDV IV PRN ×2 (20:21→20:40)
[2024-09-04 20:43] LABS: BASOPHILS ABSOLUTE AUTO 0.03 K/uL (0.00-0.20); BASOPHILS PERCENT AUTO 0.9 % (0.0-1.0); EOSINOPHILS ABSOLUTE AUTO 0.12 K/uL (0.00-0.45); EOSINOPHILS PERCENT AUTO 3.5 % (0.0-6.0); HEMATOCRIT 39.7 % (37.0-47.0); HEMOGLOBIN 13.8 g/dL (12.0-16.0); LYMPHOCYTES ABSOLUTE AUTO 2.34 K/uL (1.00-4.80); MEAN CORPUSCULAR HEMOGLOBIN 29.8 pg (28.0-32.0); MEAN CORPUSCULAR HGB CONC 34.8 g/dL (32.0-36.0); MEAN CORPUSCULAR VOLUME 85.7 fL (83.0-99.0); MEAN PLATELET VOLUME 10.3 fL (9.4-12.3); MONOCYTES ABSOLUTE AUTO 0.09 K/uL (0.00-0.80); MONOCYTES PERCENT AUTO 2.6 % (0.0-8.0); NEUTROPHILS ABSOLUTE AUTO 0.86 K/uL (1.80-7.70); PLATELET COUNT,PLT 180 K/uL (150-400); RED BLOOD CELL COUNT 4.63 M/uL (4.10-5.30); WHITE BLOOD CELL COUNT,WBC 3.44 K/uL (3.9-11.3)
[2024-09-04] MEDS: Sodium Chloride 0.9% 1,000 ML IV ONE (20:52)
[2024-09-04 21:08] LABS: BILIRUBIN,URINE NEGATIVE (NEGATIVE); COLOR,URINE YELLOW; GLUCOSE,URINE >=1000 mg/dL (NEGATIVE); KETONES,URINE TRACE mg/dL (NEGATIVE); LEUKOCYTE ESTERASE,URINE NEGATIVE (NEGATIVE); NITRITE,URINE NEGATIVE (NEGATIVE); OCCULT BLOOD,URINE NEGATIVE (NEGATIVE); PROTEIN,URINE TRACE mg/dL (NEGATIVE)
[2024-09-04 21:09] LABS: A/G RATIO 1.1 (0.9-1.6); ALBUMIN 3.9 g/dL (3.4-5.0); BILIRUBIN TOTAL 1.1 mg/dL (0.2-1.0); CALCIUM 9.3 mg/dL (8.5-10.1); CARBON DIOXIDE,CO2 31.2 mmol/L (21.0-32.0); CREATININE 0.8 mg/dL (0.6-1.0); EST CRCL DRUG DOSING (CG) 57.07 mL/min; POTASSIUM,K 3.1 mmol/L (3.5-5.1); PROTEIN TOTAL,TP 7.5 g/dL (6.4-8.2)
[2024-09-04 21:09] LABS: APPEARANCE,URINE HAZY
[2024-09-04 21:23] LABS: AMORPHOUS SEDIMENT,URINE LIGHT (NEGATIVE); BACTERIA,URINE FEW (NEGATIVE); EPITHELIAL CELLS,URINE MODERATE (NONE-FEW); MUCUS,URINE LIGHT (NONE-MOD); RBC,URINE 0-1 (0-2/HPF); WBC,URINE 0-1 (0-5/HPF)
[2024-09-05] MEDS: Potassium Chloride 20 MEQ Tab.ER PO ONE (00:52)
[2024-09-05 00:58] VITALS: BP 149/80; PULSE 71
== END 2024-09-05 00:58 | disposition home or self-care (01) ==
LOC: MW.ED 19:49
DX: E87.6 Hypokalemia (principal); E86.0 Dehydration; E11.65 Type 2 diabetes mellitus with hyperglycemia; I10 Essential (primary) hypertension; E78.00 Pure hypercholesterolemia, unspecified; I25.10 Atherosclerotic heart disease of native coronary artery without angina pectoris; Z79.82 Long term (current) use of aspirin; Z79.899 Other long term (current) drug therapy
CPT/HCPCS: 36415; 80053; 81001; 83735; 85025; 93005; 96360; 96361; 99285; A9270; J7030; 93010; 99283